=== PATIENT | female | born 1995 | race Caucasian/White ===

== ENCOUNTER 2019-10-29 11:01 | Outpatient (CLI) | payer BC ==
[~2019-10-29] VITALS: Ht 162.6 cm; Wt 92.3 kg
[~2019-10-29 11:01] MED LIST: FERROUS SU325 MG/TAB PO; MOTRIN 800800 MG/TAB PO; PERCOCET 325 MG1 TA2 PO; PRENATAL VITAMI1 TAB PO
--- NOTE | 2019-10-29 11:10 | NUR ---
Pt arrives on unit ambulatory with spouse for possible SROM. States leaking of fluid this am with bloody show on pad. Denies regular ctx. Reports GFM. Changed into a clean gown. EFM and toco applied. VSS. Amniotest negative. SVE per this RN /-2. No fluid noted on glove. Amniotest swabbed on labia and glove. No color change. Dr. Chakraborty notified. See physician notification. Admisison assessment completed. Pt updated on POC. Safety reviewed. Bed locked in low position. Call light within reach. No questions or concerns at this time.
[2019-10-29 11:40] VITALS: BP 127/90; PULSE 96; TEMP 97.2
== END 2019-10-29 11:40 | disposition home or self-care (01) ==
LOC: LDRO 11:01 → LDR 11:10 → LDRO 11:40
DX: Z34.93 Encounter for supervision of normal pregnancy, unspecified, third trimester (principal); Z3A.40 40 weeks gestation of pregnancy
CPT/HCPCS: OP

== ENCOUNTER 2019-10-30 06:12 | Inpatient (IN) | payer BC ==
[2019-10-30] VITALS (19 sets, daily range): BP systolic 107–150; BP diastolic 57–91; PULSE 61–100; TEMP 97.6–98.4
[~2019-10-30] VITALS: Ht 160 cm; Wt 86.4 kg
--- NOTE | 2019-10-30 06:20 | NUR ---
0620 Patient ambulatory to [facility] with . She is a G2L1 at 40.4 weeks gestation who is scheduled for an induction this morning. Patient states that she started daisy at 0245 this morning and is very uncomfortable. She reports good movement and denies leaking of fluid or vaginal bleeding. Patient changed into gown, wedged left in bed. EFMs explained and applied. FHR 140 bpm and reactive. CTX q4 minutes, patient tense and breathing through them. SVE 6/90/-1 with bulgy bag. Plan of care reviewed. Patient request epidural. 0635 Dr. Oseguera called and updated. Orders recieved. [employer]LT[employer]ATE [employer] REFEREE notified. 0640 IV started in left hand with labs drawn from site. LR bolus infusing.
[2019-10-30 07:06] LABS: BASO # 0.1 (0.0-0.2); BASO % 0.6 % (0.0-2.0); EOS # 0.1 (0.0-0.7); EOS % 0.6 % (0-4.0); GRAN # 6.5 (1.4-6.5); GRAN % 65.1 % (42.2-75.2); HEMATOCRIT 45.1 % (37.0-47.0); HEMOGLOBIN 14.9 g/dl (12.5-16.0); LYMPH # 2.4 (1.2-3.4); LYMPH % 23.7 % (20.0-51.0); MEAN CELL VOLUME 88 fl (80.0-100.0); MEAN CORPUSCULAR HEMOGLOBIN 29 pg (27.0-31.0); MEAN CORPUSCULAR HGB CONC 33 g/dl (33.0-37.0); MEAN PLATELET VOLUME 10.2 fl (7.4-10.4); MONO % 9.8 % (1.7-9.3); PLATELET COUNT 246 K/mm3 (130-400); RED BLOOD COUNT 5.11 M/mm3 (4.10-5.30); REDCELL DISTRIBUTION WIDTH-CV 13.2 % (11.5-14.5)
--- NOTE | 2019-10-30 07:06 | NUR ---
0700 JUDI De Leon to room to place epidural. Patient sits upright on the side of the bed. FHR difficult to monitor in this position and traces maternal HR. 0706 Single shot administered by JUDI De Leon. See anesthesia record for details.
--- NOTE | 2019-10-30 07:20 | NUR ---
Patient c/o feeling pressure with contractions. SVE 9-10/bulgy bag/bloody show. Dr. Oseguera notified.
--- NOTE | 2019-10-30 08:45 | NUR ---
Dr. Oseguera to room. 0833 SVE with AROM. 10/+2, moderate amount of clear fluid. Patient prepped for delivery. 0837 Patient begins to push with contractions. 0845 Spontaneous vaginal delivery of viable female by Dr. Oseguera. Cord clamped and cut and to the care of the nursery RN. 0849 Spontaneous delivery of placenta. Pitocin infusing at 333ml/hr per orders and protocol. Fundus firm, lochia WNL, perinuem intact.
[2019-10-31 02:02] VITALS: BP 117/84; PULSE 79; TEMP 98.4
--- NOTE | 2019-10-31 09:06 | NUR ---
Initial visit; Parents resting. [employer] Helper left card of congratulations and God's blessings for the of their daughter and information regarding the availability of spiritual care at our hospital.
[2019-10-31 09:10] VITALS: BP 125/80; PULSE 81; TEMP 97.7
[2019-10-31] MEDS ORDERED: IBU800 M1 PO (10:12)
== END 2019-10-31 12:45 | disposition home or self-care (01) | DRG 807 ==
LOC: LDR → OB 11:20
PROVIDERS: ADMIT Student in an Organized Health Care Education/Training Program
PROC: 10E0XZZ Delivery of Products of Conception, External Approach (ICD-10-PCS; principal; 2019-10-30)
PROC: 10907ZC Drainage of Amniotic Fluid, Therapeutic from Products of Conception, Via Natural or Artificial Opening (ICD-10-PCS; 2019-10-30)
DX: O99.62 Diseases of the digestive system complicating childbirth (principal); Z37.0 Single live birth; K21.9 Gastro-esophageal reflux disease without esophagitis; Z3A.40 40 weeks gestation of pregnancy; Z23 Encounter for immunization
CPT/HCPCS: J2590; J2795; J7120